=== PATIENT | male | born 1935 | race Caucasian/White ===

== ENCOUNTER 2021-01-12 07:31 | Emergency (ER) | payer OTHER ==
[~2021-01-12] VITALS: Ht 180.3 cm; Wt 79.4 kg
[2021-01-12 09:00] VITALS: BP 150/85
== END 2021-01-12 08:47 | disposition home or self-care (01) ==
LOC: ER 07:31
DX: H93.13 Tinnitus, bilateral (principal); I10 Essential (primary) hypertension; E78.00 Pure hypercholesterolemia, unspecified

== ENCOUNTER → 2021-05-02 | Outpatient (CLI) | payer OTHER | LOC: SPEECH 09:33 → EDSTATUS 10:00 → SPEECH 10:00 | PROVIDERS: ATTEND Otolaryngology | DX: R49.0 Dysphonia (principal) ==